=== PATIENT | female | born 1970 | race Caucasian/White ===

== ENCOUNTER 2020-04-26 08:39 | Emergency (ER) | payer OTHER ==
[~2020-04-26] VITALS: Ht 165.1 cm; Wt 72.1 kg
[2020-04-26 08:45] VITALS: BP_SYST 120
[2020-04-26] MEDS ORDERED: NACL 0.9% 1,000 ML IV ONE (09:04)
[2020-04-26] MEDS ORDERED: MAG HYDROX/AL HYDROX/SIMETH 30 ML, DICYCLOMINE HCL 20 MG, LIDOCAINE VISCOUS 2% 15ML (PO... PO ONE ×3 (09:15)
[2020-04-26] MEDS ORDERED: FAMOTIDINE PF 20 MG/2 ML VIAL IVP ONE (09:15)
[2020-04-26 09:24] LABS: BASOPHILS # (AUTO) 0.1 K/uL (0.0-0.2); BASOPHILS % (AUTO) 0.5 % (0.0-2.0); EOSINOPHILS # (AUTO) 0.3 K/uL (0.0-0.4); EOSINOPHILS % (AUTO) 2.5 % (0.0-4.0); HEMATOCRIT 37.2 % (36-48); HEMOGLOBIN 12.7 g/dL (12.0-16.0); LYMPHOCYTES % (AUTO) 44.6 % (20.5-51.5); MEAN CORPUSCULAR HEMOGLOBIN 36 pg (27-31); MEAN CORPUSCULAR HGB CONC 34 % (32-36); MEAN CORPUSCULAR VOLUME 105 fL (79.0-98.0); MONOCYTES # (AUTO) 1.2 K/uL (0.0-1.0); MONOCYTES % (AUTO) 11.1 % (1.7-9.3); NEUTROPHILS # (AUTO) 4.6 K/uL (1.8-7.7); NEUTROPHILS % (AUTO) 41.3 % (40.0-70.0); PLATELET COUNT (AUTO) 239 K/uL (130-430); RED BLOOD CELL COUNT(AUTO) 3.55 MIL/uL (4.2-6.2); RED CELL DISTRIBUTION WIDTH 13.3 % (9.0-15.0); WHITE BLOOD COUNT (AUTO) 11.2 K/uL (4.8-10.8)
[2020-04-26 09:28] LABS: ANION GAP 13 (5-15); CALCIUM 9.1 mg/dL (8.4-11.0); CHLORIDE 102 mmol/L (98-107); CREATININE 0.67 mg/dL (0.55-1.30); GLUCOSE 106 mg/dL (70-99); POTASSIUM 3.3 mmol/L (3.5-5.1); SODIUM SERUM 141 mmol/L (136-145); UREA NITROGEN, BLOOD 9 mg/dL (8-21)
[2020-04-26 09:30] LABS: GFR AFRICAN AMERICAN 121 mL/min (>90)
[2020-04-26] MEDS ORDERED: ONDANSETRON HCL 4 MG/2 ML VIAL IVP ONE (09:30)
[2020-04-26] MEDS ORDERED: fentaNYL CITRATE/PF 100 MCG/2 ML AMP IVP ONE (09:30)
[2020-04-26] MEDS ORDERED: DIAZEPAM 5 MG TABLET (VALIUM) PO ONE (09:30)
[2020-04-26 09:33] LABS: PROTHROMBIN TIME 9.7 SECS (9.5-12.5)
[2020-04-26 09:35] LABS: ALANINE AMINOTRANSFERASE 22 U/L (12-78); ALBUMIN 3.6 g/dL (3.4-4.8); ASPARTATE AMINOTRANSFERASE 34 U/L (10-37); TOTAL BILIRUBIN 0.1 mg/dL (0.0-1.0)
[2020-04-26] MEDS ORDERED: MORPHINE 4 MG/ML INJ. SYRINGE IVP ONE ×2 (09:45→10:15)
[2020-04-26 09:51] LABS: LIPASE > 45000 U/L (73-393)
[2020-04-26] MEDS ORDERED: NACL 0.9% 2,000 ML IV ONE (10:15)
[2020-04-26] MEDS ORDERED: KETAMINE 30 MG/3 ML SYRINGE 30 MG in NS 100 ML IV ONE (10:30)
[2020-04-26] MEDS ORDERED: IOHEXOL 100 ML IV ONE (10:31)
[2020-04-26] MEDS ORDERED: KETAMINE 30 MG/3 ML SYRINGE ONE (10:43)
[2020-04-26] MEDS ORDERED: LORazepam 2 MG/ML VIAL IVP ONE (11:00)
[2020-04-26 14:31] VITALS: BP_SYST 132
== END 2020-04-26 14:31 | disposition short-term general hospital (02) ==
LOC: SED 08:39
DX: K85.90 Acute pancreatitis without necrosis or infection, unspecified (principal); F10.229 Alcohol dependence with intoxication, unspecified; F17.210 Nicotine dependence, cigarettes, uncomplicated; Y90.9 Presence of alcohol in blood, level not specified
CPT/HCPCS: 36415; 36600; 71045; 74177; 76705; 80053; 82803; 83690; 84702; 85025; 85610; 85730; 93005; 96361; 96374; 96375; 99291; 99292; J2001; J2060; J2270; J2405; J3010; J3490; J7030; Q9967; 96360; 99285

== ENCOUNTER 2021-07-24 07:15 | Emergency (ER) | payer OTHER, SELFPAY ==
[~2021-07-24] VITALS: Ht 165.1 cm; Wt 68.0 kg
--- NOTE | 2021-07-24 07:21 | NUR ---
PT COMES IN VIA W/C, BROUGHT IN WITH FROM HOME. 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 ADMITS TO DRINKING 3 MARGARITAS AND TWO BEERS LAST NIGHT. STATES SAME PROBLEM LAST TIME AND WAS DIAGNOSED WITH PANCREATITIS. PT DENIES ANY CHEST PAIN OR SOB. SKI W/D/I.
--- NOTE | 2021-07-24 07:26 | NUR ---
DR RUIZ AT BEDSIDE FOR EXAM.
[2021-07-24 07:29] VITALS: BP_SYST 159
[2021-07-24] MEDS ORDERED: KETOROLAC TROMETHAMINE 60 MG/2 ML VIAL IM ONE (07:30)
[2021-07-24] MEDS ORDERED: ONDANSETRON 4 MG ODT TAB PO ONE (07:30)
--- NOTE | 2021-07-24 07:51 | NUR ---
PT BACK FROM CT SCAN, CONT TO C/O ABD PAIN.
--- NOTE | 2021-07-24 08:14 | NUR ---
CALL CENTER ASSOCIATE AT BEDSIDE FOR BLOOD COLLECTION
--- NOTE | 2021-07-24 08:17 | NUR ---
DR RUIZ INFORMED THAT PT IS REQUESTING MORE PAIN MEDS. CONINUES TO FEEL NAUSEA. DR RUIZ INFORMED AND NOW AT BEDSIDE FOR RE-EXAM.
[2021-07-24] MEDS ORDERED: MORPHINE 4 MG INJ. 4 MG/ML VIAL IM ONE (08:30)
[2021-07-24 08:31] LABS: BASOPHILS # (AUTO) 0.1 K/uL (0.0-0.2); BASOPHILS % (AUTO) 0.7 % (0.0-2.0); EOSINOPHILS # (AUTO) 0.2 K/uL (0.0-0.4); EOSINOPHILS % (AUTO) 1.7 % (0.0-4.0); HEMATOCRIT 39.4 % (36-48); HEMOGLOBIN 13.4 g/dL (12.0-16.0); LYMPHOCYTES # (AUTO) 2.2 K/uL (1.0-5.5); LYMPHOCYTES % (AUTO) 18.1 % (20.5-51.5); MEAN CORPUSCULAR HEMOGLOBIN 36 pg (27-31); MEAN CORPUSCULAR HGB CONC 34 % (32-36); MEAN CORPUSCULAR VOLUME 106 fL (79.0-98.0); NEUTROPHILS # (AUTO) 8.6 K/uL (1.8-7.7); NEUTROPHILS % (AUTO) 71.5 % (40.0-70.0); PLATELET COUNT (AUTO) 233 K/uL (130-430); RED BLOOD CELL COUNT(AUTO) 3.72 MIL/uL (4.2-6.2)
--- NOTE | 2021-07-24 08:32 | NUR ---
PT MEDICATED WITH MORPHHINE 4MG IM TO LEFT DELTOID ORDERED, WILL CONT TO MONITOR FOR EFFCTS.
[2021-07-24 08:43] LABS: PROTHROMBIN TIME 10.4 SECS (9.5-12.5)
[2021-07-24 08:49] LABS: ANION GAP 13 (5-15); CALCIUM 8.3 mg/dL (8.4-11.0); CHLORIDE 104 mmol/L (98-107); CREATININE 0.64 mg/dL (0.55-1.30); GLUCOSE 136 mg/dL (70-99); POTASSIUM 3.5 mmol/L (3.5-5.1); SODIUM SERUM 139 mmol/L (136-145); UREA NITROGEN, BLOOD 9 mg/dL (8-21)
[2021-07-24 08:55] LABS: ALANINE AMINOTRANSFERASE 36 U/L (12-78); ALBUMIN 3.8 g/dL (3.4-4.8); ASPARTATE AMINOTRANSFERASE 54 U/L (10-37); LIPASE 10701 U/L (73-393); TOTAL BILIRUBIN 0.1 mg/dL (0.0-1.0)
--- NOTE | 2021-07-24 08:57 | NUR ---
PT CONITNUES TO PAULETTE IN PAIN, STATES " IM DRY HEAVING NOW". DR RUIZ INFORMED. PT STATES MORPHINE HAS NOT HELPED HER AND THAT MORPHINE IV IS WHAT WORKS FOR HER. DR RUIZ INFORMED.
[2021-07-24 09:02] LABS: C-REACTIVE PROTEIN QUANT < 0.2 mg/dL (0-0.5); GFR AFRICAN AMERICAN 127 mL/min (>90)
[2021-07-24 09:05] LABS: AMYLASE 2083 U/L (0-100)
[2021-07-24] MEDS ORDERED: MORPHINE 4 MG INJ. 4 MG/ML VIAL IVP ONE ×2 (09:15→11:30)
[2021-07-24] MEDS ORDERED: ONDANSETRON HCL 4 MG/2 ML VIAL IVP ONE (09:15)
[2021-07-24] MEDS ORDERED: NACL 0.9% 2,000 ML IV ONE (09:15)
--- NOTE | 2021-07-24 09:32 | NUR ---
Dr. Jimenez, [place] [facility] Doc, called back to speak to Dr. Jimenez regarding pt status.
--- NOTE | 2021-07-24 10:28 | NUR ---
PT CONTINUES TO MOAN WITH PAIN, BOYFRIEND AT BEDSIDE, CONVERSING. DR RUIZ INFORMED OF PT'S CONTINUED PAIN. NO ORDERS RECEIVED.
[2021-07-24] MEDS ORDERED: KETAMINE 30 MG/3 ML SYRINGE IVP ONE (10:30)
--- NOTE | 2021-07-24 11:33 | NUR ---
MEDICATED ORDERED, BOYFIEND AT BEDSIDE. WAITING FOR [facility] TRANSFER.
--- NOTE | 2021-07-24 12:05 | NUR ---
TRANSFER INFO [facility] Dr. Valladares Okeene [phone] [facility] ETA 1230 spoke to [place]
--- NOTE | 2021-07-24 12:40 | NUR ---
REPORT GIVEN TO AZUL LINN AT [facility], UPDATED ON PT'S STATUS, LABS AND VITALS. PT STABLE FOR TRANSFER.
--- NOTE | 2021-07-24 13:00 | NUR ---
REPORT GIVEN TO [facility]. ALL TRANSFER PAPERWORK GIVEN. PT STABLE FOR TRANSFER.
[2021-07-24 13:04] VITALS: BP_SYST 136
--- NOTE | 2021-07-24 13:05 | NUR ---
Patient to be transferred to [facility]. Is being transferred due to higher level of care. Receiving facility has accepting physician and available space. ER physician has signed transfer form. Patient or responsible democrat has agreed to transfer and signed form. Patient belongings inventoried and will be sent with patient. Copy of nursing notes, lab reports, EKG, Physicians Orders and X-rays to be sent with patient. Report called to at receiving facility. Receiving physician is . ambulance service has been called for transfer.
== END 2021-07-24 13:05 | disposition short-term general hospital (02) ==
LOC: SED 07:15
DX: K85.90 Acute pancreatitis without necrosis or infection, unspecified (principal); Z20.822 Contact with and (suspected) exposure to COVID-19
CPT/HCPCS: 36415; 74176; 76376; 80053; 82150; 83605; 83690; 84484; 84703; 85025; 85610; 85730; 86140; 87426; 96361; 96372; 96374; 96375; 96376; 99285; J1885; J2270; J2405; J7030; Q0162

== ENCOUNTER 2021-11-05 12:32 | Emergency (ER) | payer OTHER, SELFPAY ==
[~2021-11-05] VITALS: Ht 167.6 cm; Wt 68.0 kg
[2021-11-05 12:37] VITALS: BP_SYST 89
[2021-11-05] MEDS ORDERED: ONDANSETRON HCL 4 MG/2 ML VIAL IVP ONE ×2 (13:00→17:00)
[2021-11-05] MEDS ORDERED: MORPHINE 4 MG INJ. 4 MG/ML VIAL IVP ONE ×3 (13:00→17:00)
[2021-11-05] MEDS ORDERED: NACL 0.9% 1,000 ML IV ONE ×3 (13:00→17:00)
[2021-11-05 13:19] LABS: BASOPHILS # (AUTO) 0.1 K/uL (0.0-0.2); BASOPHILS % (AUTO) 0.6 % (0.0-2.0); EOSINOPHILS # (AUTO) 0.1 K/uL (0.0-0.4); EOSINOPHILS % (AUTO) 0.9 % (0.0-4.0); HEMATOCRIT 39.7 % (36-48); HEMOGLOBIN 13.3 g/dL (12.0-16.0); LYMPHOCYTES # (AUTO) 3.6 K/uL (1.0-5.5); LYMPHOCYTES % (AUTO) 24.6 % (20.5-51.5); MEAN CORPUSCULAR HEMOGLOBIN 32 pg (27-31); MEAN CORPUSCULAR HGB CONC 33 % (32-36); MEAN CORPUSCULAR VOLUME 95 fL (79.0-98.0); MONOCYTES # (AUTO) 0.8 K/uL (0.0-1.0); MONOCYTES % (AUTO) 5.4 % (1.7-9.3); NEUTROPHILS # (AUTO) 10.1 K/uL (1.8-7.7); NEUTROPHILS % (AUTO) 68.5 % (40.0-70.0); PLATELET COUNT (AUTO) 275 K/uL (130-430); RED BLOOD CELL COUNT(AUTO) 4.18 MIL/uL (4.2-6.2); RED CELL DISTRIBUTION WIDTH 13.6 % (9.0-15.0); WHITE BLOOD COUNT (AUTO) 14.8 K/uL (4.8-10.8)
[2021-11-05] MEDS ORDERED: LORazepam 2 MG/ML VIAL IVP ONE (13:45)
[2021-11-05 13:56] LABS: CALCIUM 8.7 mg/dL (8.4-11.0); CREATININE 0.59 mg/dL (0.55-1.30); POTASSIUM 3.3 mmol/L (3.5-5.1)
[2021-11-05 14:01] LABS: ALBUMIN 3.9 g/dL (3.4-4.8); TOTAL BILIRUBIN 0.3 mg/dL (0.0-1.0)
[2021-11-05 16:16] LABS: INR 1.1 (0.8-1.2); PROTHROMBIN TIME 10.8 SECS (9.5-12.5)
[2021-11-05] MEDS ORDERED: chlordiazePOXIDE HCL 25 MG CAPSULE PO ONE (16:30)
[2021-11-05 16:31] LABS: BILIRUBIN,URINE NEGATIVE (NEGATIVE); BLOOD, URINE NEGATIVE (NEGATIVE); CLARITY/URINE CLEAR (CLEAR); COLOR,URINE YELLOW (YELLOW); GLUCOSE,URINE NEGATIVE (NEGATIVE); KETONES,URINE 3+ (NEGATIVE); LEUKOCYTE ESTERASE ,URINE NEGATIVE (NEGATIVE); NITRITE, URINE NEGATIVE (NEGATIVE); PROTEIN URINE NEGATIVE (NEGATIVE); UROBILINOGEN,URINE 0.2 (0.2-1.0)
[2021-11-05] MEDS ORDERED: metroNIDAZOLE 500 MG TABLET PO ONE (17:00)
[2021-11-05] MEDS ORDERED: PIPERACILLIN/TAZO 3.375 GM in NS 50 ML IV ONE (17:00)
[2021-11-05] MEDS ORDERED: FOLIC ACID 1 MG, THIAMINE HCL 100 MG, MAGNESIUM SULFATE 1 GM, MVI 10 ML in NACL 0.9% 1,... IV ONE (17:00)
[2021-11-05] MEDS ORDERED: KCL 20 mEq in 100 mL (PREMIX) 100 ML IV ONE (17:00)
[2021-11-05] MEDS ORDERED: HYDROmorphone 1 MG/ML INJ. CARTRIDGE IVP ONE (18:30)
[2021-11-05] MEDS ORDERED: PROCHLORPERAZINE EDISYLATE 10 MG/2 ML VIAL IVP ONE (18:45)
[2021-11-05] MEDS ORDERED: DIPHENHYDRAMINE INJ 50 MG/ML VIAL IVP ONE (18:45)
[2021-11-05 18:51] VITALS: BP_SYST 141
== END 2021-11-05 19:07 | disposition short-term general hospital (02) ==
LOC: SED 12:32
DX: R10.13 Epigastric pain (principal); R11.2 Nausea with vomiting, unspecified; Z20.822 Contact with and (suspected) exposure to COVID-19
CPT/HCPCS: 36415; 71045; 74018; 80053; 81003; 83605; 83690; 85025; 85610; 87040; 87426; 93005; 96361; 96365; 96366; 96368; 96375; 96376; 99291; J0780; J1170; J1200; J2060; J2270; J2405; J3480; J7030

== ENCOUNTER 2022-01-03 02:35 | Emergency (ER) | payer OTHER ==
[~2022-01-03] VITALS: Ht 165.1 cm; Wt 63.5 kg
[2022-01-03 02:40] VITALS: BP_SYST 139
[2022-01-03] MEDS ORDERED: NACL 0.9% 1,000 ML IV ONE (05:00)
[2022-01-03] MEDS ORDERED: MAG HYDROX/AL HYDROX/SIMETH 30 ML, LIDOCAINE VISCOUS 2% 15ML (PO) 15 ML, DICYCLOMINE HC... PO ONE ×3 (05:00)
[2022-01-03] MEDS ORDERED: ONDANSETRON HCL 4 MG/2 ML VIAL IVP ONE ×2 (05:00)
[2022-01-03] MEDS ORDERED: KETOROLAC TROMETHAMINE 30 MG VIAL IVP ONE (05:00)
[2022-01-03 05:01] LABS: CALCIUM 8.9 mg/dL (8.4-11.0); CREATININE 0.64 mg/dL (0.55-1.30); POTASSIUM 3.3 mmol/L (3.5-5.1)
[2022-01-03 05:02] LABS: MEAN CORPUSCULAR HGB CONC 33 % (32-36); RED CELL DISTRIBUTION WIDTH 13.8 % (9.0-15.0)
[2022-01-03 05:08] LABS: ALBUMIN 3.1 g/dL (3.4-4.8); BASOPHILS % (AUTO) 0.3 % (0.0-2.0); EOSINOPHILS # (AUTO) 0.2 K/uL (0.0-0.4); EOSINOPHILS % (AUTO) 1.3 % (0.0-4.0); HEMATOCRIT 34.9 % (36-48); HEMOGLOBIN 11.5 g/dL (12.0-16.0); LYMPHOCYTES # (AUTO) 2.7 K/uL (1.0-5.5); LYMPHOCYTES % (AUTO) 19.2 % (20.5-51.5); MEAN CORPUSCULAR HEMOGLOBIN 31 pg (27-31); MEAN CORPUSCULAR VOLUME 93 fL (79.0-98.0); MONOCYTES # (AUTO) 1.2 K/uL (0.0-1.0); MONOCYTES % (AUTO) 8.2 % (1.7-9.3); NEUTROPHILS # (AUTO) 10.1 K/uL (1.8-7.7); PLATELET COUNT (AUTO) 475 K/uL (130-430); RED BLOOD CELL COUNT(AUTO) 3.75 MIL/uL (4.2-6.2); TOTAL BILIRUBIN 0.4 mg/dL (0.0-1.0); WHITE BLOOD COUNT (AUTO) 14.2 K/uL (4.8-10.8)
[2022-01-03 05:08] LABS: BILIRUBIN,URINE 2+ (NEGATIVE); BLOOD, URINE NEGATIVE (NEGATIVE); CLARITY/URINE CLEAR (CLEAR); COLOR,URINE YELLOW (YELLOW); GLUCOSE,URINE NEGATIVE (NEGATIVE); KETONES,URINE 3+ (NEGATIVE); LEUKOCYTE ESTERASE ,URINE NEGATIVE (NEGATIVE); NITRITE, URINE NEGATIVE (NEGATIVE); PROTEIN URINE 1+ (NEGATIVE)
[2022-01-03] MEDS ORDERED: MORPHINE 4 MG INJ. 4 MG/ML VIAL IM ONE (05:15)
[2022-01-03] MEDS ORDERED: MORPHINE 4 MG INJ. 4 MG/ML VIAL IVP ONE (05:30)
[2022-01-03] MEDS ORDERED: PROCHLORPERAZINE EDISYLATE 10 MG/2 ML VIAL ONE (05:35)
[2022-01-03] MEDS ORDERED: PROMETHAZINE INJ.Non-Formulary 25 MG/ML AMP IVP ONE (05:45)
[2022-01-03] MEDS ORDERED: PROCHLORPERAZINE EDISYLATE 10 MG/2 ML VIAL IVP ONE (05:45)
== END 2022-01-03 09:17 | disposition left against medical advice (07) ==
LOC: SED 02:35
DX: K85.20 Alcohol induced acute pancreatitis without necrosis or infection (principal); R74.8 Abnormal levels of other serum enzymes; F10.20 Alcohol dependence, uncomplicated; Y90.0 Blood alcohol level of less than 20 mg/100 ml
CPT/HCPCS: 36415; 76705; 80053; 81003; 83690; 85025; 96361; 96374; 96375; 99284; G0482; J0780; J2270; J7030; J2550

== ENCOUNTER 2022-01-28 15:07 | Emergency (ER) | payer OTHER ==
[~2022-01-28] VITALS: Ht 165.1 cm; Wt 65.8 kg
--- NOTE | 2022-01-28 15:24 | NUR ---
ER DR DOVE EXAMINING PT IN TRIAGE
[2022-01-28 15:25] VITALS: BP_SYST 148
--- NOTE | 2022-01-28 15:25 | NUR ---
PT TRIAGED AND PLACED IN ED WAITING ROOM FOR AVAIABLE BED, MD AWARE OF MSE NEEDS
[2022-01-28 16:12] LABS: BASOPHILS # (AUTO) 0.1 K/uL (0.0-0.2); BASOPHILS % (AUTO) 0.8 % (0.0-2.0); EOSINOPHILS # (AUTO) 0.5 K/uL (0.0-0.4); EOSINOPHILS % (AUTO) 5.1 % (0.0-4.0); HEMATOCRIT 31.7 % (36-48); HEMOGLOBIN 10.8 g/dL (12.0-16.0); LYMPHOCYTES # (AUTO) 2.3 K/uL (1.0-5.5); LYMPHOCYTES % (AUTO) 23.6 % (20.5-51.5); MEAN CORPUSCULAR HEMOGLOBIN 31 pg (27-31); MEAN CORPUSCULAR HGB CONC 34 % (32-36); MEAN CORPUSCULAR VOLUME 91 fL (79.0-98.0); MONOCYTES # (AUTO) 0.8 K/uL (0.0-1.0); MONOCYTES % (AUTO) 8.4 % (1.7-9.3); NEUTROPHILS # (AUTO) 6.2 K/uL (1.8-7.7); NEUTROPHILS % (AUTO) 62.1 % (40.0-70.0); PLATELET COUNT (AUTO) 594 K/uL (130-430); RED BLOOD CELL COUNT(AUTO) 3.47 MIL/uL (4.2-6.2); RED CELL DISTRIBUTION WIDTH 15.9 % (9.0-15.0)
[2022-01-28] MEDS ORDERED: NACL 0.9% 1,000 ML IV ONE (16:15)
[2022-01-28] MEDS ORDERED: fentaNYL CITRATE/PF 100 MCG/2 ML AMP IVP ONE (16:15)
[2022-01-28] MEDS ORDERED: ONDANSETRON HCL 4 MG/2 ML VIAL IVP ONE (16:15)
[2022-01-28 16:19] LABS: ANION GAP 10 (5-15); CALCIUM 9.1 mg/dL (8.4-11.0); CHLORIDE 102 mmol/L (98-107); CREATININE 0.72 mg/dL (0.55-1.30); GLUCOSE 108 mg/dL (70-99); POTASSIUM 4.1 mmol/L (3.5-5.1); SODIUM SERUM 136 mmol/L (136-145); UREA NITROGEN, BLOOD 4 mg/dL (8-21)
[2022-01-28 16:20] LABS: GFR AFRICAN AMERICAN 111 mL/min (>90)
--- NOTE | 2022-01-28 16:20 | NUR ---
# 22 gauge angiocath placed to LEFT HAND. Use of asceptic technique. Opsite placed over site. Blood return noted. Blood for lab drawn from site. Flushed with 10 cc of normal saline. No evidence of infiltration noted. Patient tolerated well.
[2022-01-28 16:25] LABS: ALANINE AMINOTRANSFERASE 10 U/L (12-78); ALBUMIN 2.7 g/dL (3.4-4.8); ASPARTATE AMINOTRANSFERASE 16 U/L (10-37); LIPASE 556 U/L (73-393); TOTAL BILIRUBIN 0.1 mg/dL (0.0-1.0)
[2022-01-28 16:27] LABS: ALCOHOL, BLOOD < 3 mg/dL (<10)
--- NOTE | 2022-01-28 16:30 | NUR ---
Medicated per MD orders. IVF infusing with no s/s of infiltration at this time. Will cont to monitor
--- NOTE | 2022-01-28 16:30 | NUR ---
Pt alert and oriented x 3. Here from home, having been recently admitted then discharged from [facility] for abd pain. Pt has been diagnosed with alcoholic pancreatitis but states she no longer drinks. Pt taking Percocet for pain but states it was ineffective. Awaiting further dispo.
[2022-01-28] MEDS ORDERED: PANTOPRAZOLE SODIUM 40 MG/VIAL (PROTONIX) IVP ONE (17:30)
[2022-01-28] MEDS ORDERED: ONDA-8 TL (18:23)
[2022-01-28 18:26] VITALS: BP_SYST 135
[2022-01-28] MEDS ORDERED: MORPHINE 4 MG INJ. 4 MG/ML VIAL IM ONE (18:30)
--- NOTE | 2022-01-28 19:00 | NUR ---
Unable to give pt Morphine IM due to her driving herself home via private auto. Pt asked to take one of her Percocet's before going home. Advised not to take a narcotic and drive. Understanding verbalized.
--- NOTE | 2022-01-28 19:11 | NUR ---
Patient given written and verbal discharge instructions and verbalizes understanding. ER MD discussed with patient the results and treatment provided. Patient in stable condition. ID arm band removed. IV catheter removed intact and dressing applied, no active bleeding. Rx of Zofran given. Patient educated on pain management and to follow up with PMD. Pain improved. Opportunity for questions provided and answered. Medication side effect fact sheet provided.
== END 2022-01-28 19:09 | disposition home or self-care (01) ==
LOC: SED 15:07
DX: K86.1 Other chronic pancreatitis (principal); R10.13 Epigastric pain; Z79.899 Other long term (current) drug therapy
CPT/HCPCS: 36415; 80053; 83690; 85025; 96361; 96374; 96375; 99284; C9113; G0482; J2270; J2405; J3010; J7030

== ENCOUNTER 2022-02-06 02:07 | Emergency (ER) | payer OTHER ==
[~2022-02-06] VITALS: Ht 165.1 cm; Wt 63.5 kg
[~2022-02-06 02:07] MED LIST: ONDA-8 TL
[2022-02-06] MEDS ORDERED: NACL 0.9% 1,000 ML IV ONE (03:15)
[2022-02-06] MEDS ORDERED: ONDANSETRON HCL 4 MG/2 ML VIAL IVP ONE (03:15)
[2022-02-06] MEDS ORDERED: MORPHINE 4 MG INJ. 4 MG/ML VIAL IVP ONE ×2 (03:15→04:15)
[2022-02-06 03:28] VITALS: BP_SYST 150
--- NOTE | 2022-02-06 03:32 | NUR ---
Patient placed on monitor with gown on. Waiting to be seen, IVF running at this time.
[2022-02-06 03:45] LABS: BASOPHILS # (AUTO) 0.2 K/uL (0.0-0.2); BASOPHILS % (AUTO) 1.2 % (0.0-2.0); EOSINOPHILS # (AUTO) 0.3 K/uL (0.0-0.4); EOSINOPHILS % (AUTO) 2.1 % (0.0-4.0); HEMATOCRIT 35.2 % (36-48); HEMOGLOBIN 11.7 g/dL (12.0-16.0); LYMPHOCYTES # (AUTO) 3.1 K/uL (1.0-5.5); LYMPHOCYTES % (AUTO) 22.7 % (20.5-51.5); MEAN CORPUSCULAR HEMOGLOBIN 30 pg (27-31); MEAN CORPUSCULAR HGB CONC 33 % (32-36); MEAN CORPUSCULAR VOLUME 90 fL (79.0-98.0); MONOCYTES # (AUTO) 0.6 K/uL (0.0-1.0); MONOCYTES % (AUTO) 4.6 % (1.7-9.3); NEUTROPHILS # (AUTO) 9.6 K/uL (1.8-7.7); NEUTROPHILS % (AUTO) 69.4 % (40.0-70.0); PLATELET COUNT (AUTO) 548 K/uL (130-430); RED BLOOD CELL COUNT(AUTO) 3.89 MIL/uL (4.2-6.2); RED CELL DISTRIBUTION WIDTH 16.8 % (9.0-15.0); WHITE BLOOD COUNT (AUTO) 13.8 K/uL (4.8-10.8)
[2022-02-06 03:54] LABS: ANION GAP 14 (5-15); CALCIUM 9.4 mg/dL (8.4-11.0); CHLORIDE 102 mmol/L (98-107); CREATININE 0.77 mg/dL (0.55-1.30); GLUCOSE 121 mg/dL (70-99); POTASSIUM 3.6 mmol/L (3.5-5.1); SODIUM SERUM 138 mmol/L (136-145); UREA NITROGEN, BLOOD 8 mg/dL (8-21)
[2022-02-06 04:05] LABS: ALANINE AMINOTRANSFERASE 13 U/L (12-78); ALBUMIN 3.5 g/dL (3.4-4.8); ASPARTATE AMINOTRANSFERASE 19 U/L (10-37); TOTAL BILIRUBIN 0.2 mg/dL (0.0-1.0)
[2022-02-06 04:08] LABS: GFR AFRICAN AMERICAN 102 mL/min (>90)
[2022-02-06 04:11] LABS: HCG,QUANTITATIVE 6 mIU/ML (0-6); LIPASE 6391 U/L (73-393)
[2022-02-06 04:12] LABS: ALCOHOL, BLOOD < 3 mg/dL (<10)
[2022-02-06] MEDS ORDERED: KETAMINE 30 MG/3 ML SYRINGE IVP ONE ×2 (05:00→05:45)
[2022-02-06] MEDS ORDERED: KETAMINE 30 MG/3 ML SYRINGE ONE (05:29)
--- NOTE | 2022-02-06 05:37 | NUR ---
Second dose of ketamine administered from initial syringe prior to discarding the waste of 10mg leftover. Charge aware.
--- NOTE | 2022-02-06 06:23 | NUR ---
TRANSFER INFO Shawn Bone [facility] Bernardo Voss [phone] ETA 0700 Addendum: 02/06/22 at 0644 by BRENDAN Bernardo Blue is the accepting doctor.
[2022-02-06 06:43] LABS: BILIRUBIN,URINE NEGATIVE (NEGATIVE); BLOOD, URINE NEGATIVE (NEGATIVE); CLARITY/URINE CLEAR (CLEAR); COLOR,URINE YELLOW (YELLOW); GLUCOSE,URINE NEGATIVE (NEGATIVE); KETONES,URINE NEGATIVE (NEGATIVE); LEUKOCYTE ESTERASE ,URINE TRACE (NEGATIVE); NITRITE, URINE NEGATIVE (NEGATIVE); PH,URINE 7.5 (5.0-8.0); PROTEIN URINE NEGATIVE (NEGATIVE); UROBILINOGEN,URINE 0.2 (0.2-1.0)
[2022-02-06 06:59] LABS: BACTERIA,URINE FEW /HPF (None Seen); RBC,URINE 0-3 /HPF (0-3)
[2022-02-06 07:00] LABS: MUCUS,URINE 1+ /LPF (None Seen)
--- NOTE | 2022-02-06 07:12 | NUR ---
Patient to be transferred to [facility]. Is being transferred due to higher level of care. Receiving facility has accepting physician and available space. ER physician has signed transfer form. Patient or responsible republican has agreed to transfer and signed form. Patient belongings inventoried and will be sent with patient. Copy of nursing notes, lab reports, EKG, Physicians Orders and X-rays to be sent with patient. Report called to at receiving facility. Receiving physician is . ambulance service has been called for transfer. ETA is .
== END 2022-02-06 07:12 | disposition short-term general hospital (02) ==
LOC: SED 02:07
DX: K85.90 Acute pancreatitis without necrosis or infection, unspecified (principal); Z79.899 Other long term (current) drug therapy
CPT/HCPCS: 36415; 76700; 80053; 81000; 83690; 84702; 85025; 87086; 96361; 96374; 96375; 96376; 99285; G0482; J2270; J2405; J7030

== ENCOUNTER 2022-04-25 10:07 | Emergency (ER) | payer OTHER ==
[~2022-04-25] VITALS: Ht 162.6 cm; Wt 61.2 kg
[2022-04-25 10:30] VITALS: BP_SYST 142
[2022-04-25] MEDS: ONDANSETRON HCL 4 MG/2 ML VIAL IVP ONE ×2 (11:55)
[2022-04-25] MEDS: KETOROLAC TROMETHAMINE 30 MG VIAL IVP ONE (11:56)
[2022-04-25] MEDS: MORPHINE 4 MG INJ. 4 MG/ML VIAL IVP ONE (11:58)
[2022-04-25 12:00] LABS: BASOPHILS # (AUTO) 0.1 K/uL (0.0-0.2); BASOPHILS % (AUTO) 0.7 % (0.0-2.0); EOSINOPHILS # (AUTO) 0.1 K/uL (0.0-0.4); EOSINOPHILS % (AUTO) 1.1 % (0.0-4.0); HEMATOCRIT 35.6 % (36-48); HEMOGLOBIN 12.1 g/dL (12.0-16.0); LYMPHOCYTES # (AUTO) 2.9 K/uL (1.0-5.5); LYMPHOCYTES % (AUTO) 23.2 % (20.5-51.5); MEAN CORPUSCULAR HEMOGLOBIN 30 pg (27-31); MEAN CORPUSCULAR HGB CONC 34 % (32-36); MEAN CORPUSCULAR VOLUME 89 fL (79.0-98.0); MONOCYTES # (AUTO) 0.7 K/uL (0.0-1.0); MONOCYTES % (AUTO) 5.4 % (1.7-9.3); NEUTROPHILS # (AUTO) 8.9 K/uL (1.8-7.7); NEUTROPHILS % (AUTO) 69.6 % (40.0-70.0); PLATELET COUNT (AUTO) 382 K/uL (130-430); RED BLOOD CELL COUNT(AUTO) 4.01 MIL/uL (4.2-6.2); RED CELL DISTRIBUTION WIDTH 15.5 % (9.0-15.0); WHITE BLOOD COUNT (AUTO) 12.7 K/uL (4.8-10.8)
[2022-04-25] MEDS: NACL 0.9% 1,000 ML IV ONE ×2 (12:01→15:01)
[2022-04-25 12:15] LABS: CALCIUM 10.3 mg/dL (8.4-11.0); CREATININE 0.62 mg/dL (0.55-1.30); POTASSIUM 4.3 mmol/L (3.5-5.1)
[2022-04-25 12:19] LABS: TOTAL BILIRUBIN 0.2 mg/dL (0.0-1.0)
[2022-04-25 12:28] LABS: BILIRUBIN,URINE NEGATIVE (NEGATIVE); BLOOD, URINE NEGATIVE (NEGATIVE); CLARITY/URINE CLEAR (CLEAR); COLOR,URINE YELLOW (YELLOW); GLUCOSE,URINE NEGATIVE (NEGATIVE); KETONES,URINE 2+ (NEGATIVE); LEUKOCYTE ESTERASE ,URINE NEGATIVE (NEGATIVE); NITRITE, URINE NEGATIVE (NEGATIVE); PH,URINE 8.5 (5.0-8.0); PROTEIN URINE NEGATIVE (NEGATIVE); UROBILINOGEN,URINE 0.2 (0.2-1.0)
[2022-04-25] MEDS ORDERED: HYDROcodone/ACETAMIN 10-325 MG TAB PO ONE (15:15)
[2022-04-25] MEDS ORDERED: IBUPROFEN 800 MG TABLET PO ONE (15:15)
[2022-04-25] MEDS ORDERED: IBUP-1969 PO (15:23)
[2022-04-25] MEDS ORDERED: HYDR-3917 PO (15:23)
[2022-04-25 15:42] VITALS: BP_SYST 142
== END 2022-04-25 15:42 | disposition home or self-care (01) ==
LOC: SED 10:07
DX: R10.31 Right lower quadrant pain (principal); K85.90 Acute pancreatitis without necrosis or infection, unspecified; R11.0 Nausea; F12.90 Cannabis use, unspecified, uncomplicated; F17.210 Nicotine dependence, cigarettes, uncomplicated; Z79.899 Other long term (current) drug therapy
CPT/HCPCS: 99284; 74176; 96374; 96361; 96375; 80053; 83690; 85025; 36415; 76376; 81003; J1885; J2405; J2270; J7030

== ENCOUNTER 2022-04-27 09:45 | Emergency (ER) | payer OTHER ==
[~2022-04-27] VITALS: Ht 165.1 cm; Wt 55.8 kg
[~2022-04-27 09:45] MED LIST changes: +HYDR-3917 PO; +IBUP-1969 PO
[2022-04-27 09:48] VITALS: BP_SYST 136
--- NOTE | 2022-04-27 09:50 | NUR ---
Placed in room 5 . Placed on hair worker, blood pressure machine and pulse oximeter. To gown for exam. Side rails up. Report given to TEMITOPE COHN.
--- NOTE | 2022-04-27 09:56 | NUR ---
PT CAME IN FROM HOME C/O CONTINUING ABD PAIN NEAR UMBILICAS RADIAITING UP AND TO THE RIGHT WAS SEEN HERE MONDAY BY DR. RUIZ, WENT HOME WITH ROCHELLE- NOT WORKING HX PANCRETITIS, STATES HER LAST DRINK WAS IN NOVEMBER. PT IS AMBULATORY, AAOX4, TACHYCARDIC ON ARRIVAL 113.
--- NOTE | 2022-04-27 10:45 | NUR ---
# 20 gauge angiocath placed to LAC. Use of asceptic technique. Opsite placed over site. Blood return noted. Blood for lab drawn from site. Flushed with 10 cc of normal saline. No evidence of infiltration noted. Patient tolerated well. Addendum: 04/27/22 at 1222 by [email or web address] # 20 gauge angiocath placed to RAC. Use of asceptic technique. Opsite placed over site. Blood return noted. Blood for lab drawn from site. Flushed with 10 cc of normal saline. No evidence of infiltration noted. Patient tolerated well.
[2022-04-27] MEDS ORDERED: MORPHINE SULFATE 10 MG/ML VIAL IVP ONE (11:15)
[2022-04-27] MEDS ORDERED: NACL 0.9% 1,000 ML IV ONE (11:15)
[2022-04-27 11:26] LABS: CALCIUM 9.7 mg/dL (8.4-11.0); CREATININE 0.59 mg/dL (0.55-1.30); POTASSIUM 3.8 mmol/L (3.5-5.1)
[2022-04-27 11:29] LABS: BILIRUBIN,URINE 2+ (NEGATIVE); BLOOD, URINE NEGATIVE (NEGATIVE); CLARITY/URINE CLEAR (CLEAR); COLOR,URINE YELLOW (YELLOW); GLUCOSE,URINE NEGATIVE (NEGATIVE); KETONES,URINE 3+ (NEGATIVE); LEUKOCYTE ESTERASE ,URINE NEGATIVE (NEGATIVE); NITRITE, URINE NEGATIVE (NEGATIVE); PH,URINE 5.5 (5.0-8.0); PROTEIN URINE TRACE (NEGATIVE); UROBILINOGEN,URINE 0.2 (0.2-1.0)
[2022-04-27 11:35] LABS: BASOPHILS # (AUTO) 0.1 K/uL (0.0-0.2); BASOPHILS % (AUTO) 0.6 % (0.0-2.0); EOSINOPHILS # (AUTO) 0.4 K/uL (0.0-0.4); EOSINOPHILS % (AUTO) 3.6 % (0.0-4.0); HEMATOCRIT 36.6 % (36-48); HEMOGLOBIN 12.3 g/dL (12.0-16.0); LYMPHOCYTES % (AUTO) 16.2 % (20.5-51.5); MEAN CORPUSCULAR HEMOGLOBIN 30 pg (27-31); MEAN CORPUSCULAR HGB CONC 34 % (32-36); MEAN CORPUSCULAR VOLUME 90 fL (79.0-98.0); MONOCYTES # (AUTO) 0.6 K/uL (0.0-1.0); MONOCYTES % (AUTO) 4.8 % (1.7-9.3); NEUTROPHILS # (AUTO) 9.1 K/uL (1.8-7.7); NEUTROPHILS % (AUTO) 74.8 % (40.0-70.0); PLATELET COUNT (AUTO) 385 K/uL (130-430); RED BLOOD CELL COUNT(AUTO) 4.07 MIL/uL (4.2-6.2); RED CELL DISTRIBUTION WIDTH 15.6 % (9.0-15.0); WHITE BLOOD COUNT (AUTO) 12.2 K/uL (4.8-10.8)
[2022-04-27 11:39] LABS: ALBUMIN 3.8 g/dL (3.4-4.8); TOTAL BILIRUBIN 0.2 mg/dL (0.0-1.0)
[2022-04-27 11:51] LABS: BACTERIA,URINE RARE /HPF (None Seen); RBC,URINE 0-3 /HPF (0-3); WBC,URINE 0-3 /HPF (0-3)
--- NOTE | 2022-04-27 12:21 | NUR ---
Patient does not wish to proceed with medical care recommended by DR. NEGRETE. Patient given information related to possible complications, up to and including , which could occur as a result of leaving hospital at this time. Patient verbalizes understanding of risks involved leaving against medical advice. Patient has signed AMA form. MOTHER IS COMING TO GED PREPARATION TEACHER
--- NOTE | 2022-04-27 13:48 | NUR ---
DR CADEN IRVIN INFORMED. PT LEFTT WITH MOTHERS BOYFRIEND WHO CAME TO PICK HER UP.
[2022-04-27 13:50] VITALS: BP_SYST 136
== END 2022-04-27 13:48 | disposition left against medical advice (07) ==
LOC: SED 09:45
DX: R10.33 Periumbilical pain (principal); Z79.899 Other long term (current) drug therapy
CPT/HCPCS: 99285; 96374; 96361; 80053; 81000; 84703; 83690; 85025; 36415; 93005; 74018; J2270; J7030

== ENCOUNTER 2022-04-29 23:06 | Emergency (ER) | payer OTHER ==
[~2022-04-29] VITALS: Ht 165.1 cm; Wt 55.8 kg
[2022-04-29 23:09] VITALS: BP_SYST 139
[2022-04-29] MEDS ORDERED: ONDANSETRON HCL 4 MG/2 ML VIAL IVP ONE (23:15)
[2022-04-29] MEDS ORDERED: MORPHINE 4 MG INJ. 4 MG/ML VIAL IVP ONE (23:15)
[2022-04-29] MEDS ORDERED: NACL 0.9% 1,000 ML IV ONE (23:15)
[2022-04-29 23:38] LABS: BASOPHILS # (AUTO) 0.1 K/uL (0.0-0.2); BASOPHILS % (AUTO) 0.9 % (0.0-2.0); EOSINOPHILS # (AUTO) 0.5 K/uL (0.0-0.4); EOSINOPHILS % (AUTO) 4.7 % (0.0-4.0); HEMATOCRIT 33.5 % (36-48); HEMOGLOBIN 11.4 g/dL (12.0-16.0); LYMPHOCYTES # (AUTO) 2.8 K/uL (1.0-5.5); LYMPHOCYTES % (AUTO) 29.2 % (20.5-51.5); MEAN CORPUSCULAR HEMOGLOBIN 30 pg (27-31); MEAN CORPUSCULAR HGB CONC 34 % (32-36); MEAN CORPUSCULAR VOLUME 89 fL (79.0-98.0); MONOCYTES # (AUTO) 0.9 K/uL (0.0-1.0); MONOCYTES % (AUTO) 8.8 % (1.7-9.3); NEUTROPHILS # (AUTO) 5.4 K/uL (1.8-7.7); NEUTROPHILS % (AUTO) 56.4 % (40.0-70.0); PLATELET COUNT (AUTO) 392 K/uL (130-430); RED BLOOD CELL COUNT(AUTO) 3.75 MIL/uL (4.2-6.2); RED CELL DISTRIBUTION WIDTH 14.8 % (9.0-15.0); WHITE BLOOD COUNT (AUTO) 9.6 K/uL (4.8-10.8)
[2022-04-29 23:58] LABS: CALCIUM 9.9 mg/dL (8.4-11.0); CREATININE 0.65 mg/dL (0.55-1.30); POTASSIUM 3.2 mmol/L (3.5-5.1)
[2022-04-30 00:04] LABS: ALBUMIN 3.7 g/dL (3.4-4.8); TOTAL BILIRUBIN 0.2 mg/dL (0.0-1.0)
[2022-04-30] MEDS ORDERED: KCL 20 mEq in 100 mL (PREMIX) 100 ML IV ONE (00:30)
[2022-04-30] MEDS ORDERED: HYDROmorphone 1 MG/ML INJ. CARTRIDGE IVP ONE ×2 (01:00→03:45)
[2022-04-30] MEDS ORDERED: DIPHENHYDRAMINE INJ 50 MG/ML VIAL IVP ONE (01:45)
[2022-04-30] MEDS ORDERED: METOCLOPRAMIDE HCL 10 MG/2 ML VIAL IVP ONE (01:45)
[2022-04-30] MEDS ORDERED: POTASSIUM CHLORIDE 20 MEQ TAB.PRT.SR PO ONE (03:15)
[2022-04-30 03:43] LABS: BILIRUBIN,URINE 1+ (NEGATIVE); BLOOD, URINE NEGATIVE (NEGATIVE); CLARITY/URINE CLEAR (CLEAR); COLOR,URINE YELLOW (YELLOW); GLUCOSE,URINE NEGATIVE (NEGATIVE); KETONES,URINE 3+ (NEGATIVE); LEUKOCYTE ESTERASE ,URINE NEGATIVE (NEGATIVE); NITRITE, URINE NEGATIVE (NEGATIVE); PROTEIN URINE TRACE (NEGATIVE); UROBILINOGEN,URINE 0.2 (0.2-1.0)
[2022-04-30 04:34] VITALS: BP_SYST 136
== END 2022-04-30 04:16 | disposition short-term general hospital (02) ==
LOC: SED 23:06
DX: K85.90 Acute pancreatitis without necrosis or infection, unspecified (principal); R10.13 Epigastric pain; R11.2 Nausea with vomiting, unspecified; E87.6 Hypokalemia; Z79.899 Other long term (current) drug therapy; Z20.822 Contact with and (suspected) exposure to COVID-19
CPT/HCPCS: 99285; 87426; 80053; 84703; 83690; 85025; 36415; 81003; 96375; 96365; 96366; 96376; G0482; J1200; J2765; J2405; J3480; J1170; J2270

== ENCOUNTER 2022-05-09 06:27 | Emergency (ER) | payer OTHER ==
[~2022-05-09] VITALS: Ht 167.6 cm; Wt 52.6 kg
[2022-05-09 06:30] VITALS: BP_SYST 126
--- NOTE | 2022-05-09 07:24 | NUR ---
Patient noted to be throwing up in emesis bag. GUSTAVO Arnold went to see patient.
--- NOTE | 2022-05-09 07:27 | NUR ---
Patient arrived to ED room 8 for c/o abdominal in "upper mid-sternum" up and down near the belly button. Patient was having sharp pain since Monday. Patient was discharged from [facility] this past Monday on 05/04/22. Patient has history of pancreatitis and . Will continue to monitor.
[2022-05-09] MEDS ORDERED: ONDANSETRON HCL 4 MG/2 ML VIAL IVP ONE ×2 (07:45)
[2022-05-09] MEDS ORDERED: MORPHINE SULFATE 10 MG/ML VIAL IVP ONE (07:45)
[2022-05-09] MEDS ORDERED: NACL 0.9% 1,000 ML IV ONE ×2 (07:45→09:45)
[2022-05-09 07:49] LABS: BASOPHILS # (AUTO) 0.1 K/uL (0.0-0.2); BASOPHILS % (AUTO) 0.6 % (0.0-2.0); EOSINOPHILS # (AUTO) 0.3 K/uL (0.0-0.4); EOSINOPHILS % (AUTO) 1.9 % (0.0-4.0); HEMATOCRIT 36.5 % (36-48); HEMOGLOBIN 12.3 g/dL (12.0-16.0); LYMPHOCYTES # (AUTO) 2.5 K/uL (1.0-5.5); LYMPHOCYTES % (AUTO) 18.4 % (20.5-51.5); MEAN CORPUSCULAR HEMOGLOBIN 30 pg (27-31); MEAN CORPUSCULAR HGB CONC 34 % (32-36); MEAN CORPUSCULAR VOLUME 89 fL (79.0-98.0); MONOCYTES % (AUTO) 7.1 % (1.7-9.3); NEUTROPHILS # (AUTO) 9.6 K/uL (1.8-7.7); PLATELET COUNT (AUTO) 488 K/uL (130-430); RED BLOOD CELL COUNT(AUTO) 4.08 MIL/uL (4.2-6.2); RED CELL DISTRIBUTION WIDTH 15.5 % (9.0-15.0); WHITE BLOOD COUNT (AUTO) 13.4 K/uL (4.8-10.8)
[2022-05-09 08:25] LABS: ANION GAP 14 (5-15); CALCIUM 10.6 mg/dL (8.4-11.0); CHLORIDE 96 mmol/L (98-107); CREATININE 0.86 mg/dL (0.55-1.30); GLUCOSE 109 mg/dL (70-99); UREA NITROGEN, BLOOD 14 mg/dL (8-21)
[2022-05-09 08:34] LABS: GFR AFRICAN AMERICAN 90 mL/min (>90)
[2022-05-09 08:35] LABS: ALANINE AMINOTRANSFERASE 117 U/L (12-78); ALBUMIN 3.5 g/dL (3.4-4.8); ASPARTATE AMINOTRANSFERASE 112 U/L (10-37); LIPASE 1946 U/L (73-393); TOTAL BILIRUBIN 0.5 mg/dL (0.0-1.0)
[2022-05-09 08:42] LABS: ALCOHOL, BLOOD < 3 mg/dL (<10)
[2022-05-09] MEDS ORDERED: PROCHLORPERAZINE EDISYLATE 10 MG/2 ML VIAL IVP ONE (09:45)
[2022-05-09] MEDS ORDERED: DIPHENHYDRAMINE INJ 50 MG/ML VIAL IVP ONE (09:45)
[2022-05-09] MEDS ORDERED: HYDROmorphone 1 MG/ML INJ. CARTRIDGE IVP ONE ×3 (09:45→13:15)
[2022-05-09 09:48] LABS: BILIRUBIN,URINE 1+ (NEGATIVE); BLOOD, URINE NEGATIVE (NEGATIVE); CLARITY/URINE CLEAR (CLEAR); COLOR,URINE YELLOW (YELLOW); GLUCOSE,URINE NEGATIVE (NEGATIVE); KETONES,URINE 2+ (NEGATIVE); LEUKOCYTE ESTERASE ,URINE NEGATIVE (NEGATIVE); NITRITE, URINE NEGATIVE (NEGATIVE); PROTEIN URINE TRACE (NEGATIVE); UROBILINOGEN,URINE 0.2 (0.2-1.0)
--- NOTE | 2022-05-09 12:38 | NUR ---
PT WILL BE TRANSFERRED TO [facility]. ACCEPTING PHYSICIAN IS DR. JAMES. S TRANSPORT WILL TWISTHAND AT 1330. NUMBER FOR REPORT IS .
--- NOTE | 2022-05-09 14:07 | NUR ---
Report given to Shawn Lopez RN for continuity of care. Ambulance here to pick patient up.
--- NOTE | 2022-05-09 14:07 | NUR ---
Patient resting in bed.
--- NOTE | 2022-05-09 14:17 | NUR ---
Report given to TEMITOPE Ayala for continuity of care. Patient in stable condition. No distress noted. Ambulance here to take patient to [facility].
[2022-05-09 15:04] VITALS: BP_SYST 135
== END 2022-05-09 15:04 | disposition home or self-care (01) ==
LOC: SED 06:27
DX: K85.90 Acute pancreatitis without necrosis or infection, unspecified (principal); R10.13 Epigastric pain; R11.2 Nausea with vomiting, unspecified; F17.200 Nicotine dependence, unspecified, uncomplicated; Z79.899 Other long term (current) drug therapy; Z20.822 Contact with and (suspected) exposure to COVID-19
CPT/HCPCS: 99285; 96374; 96375; 96361; 87426; 80053; 83615; 83690; 85025; 36415; 96376; 81003; G0482; J1200; J2405; J0780; J1170; J2270; J7030

== ENCOUNTER 2022-06-19 10:47 | Emergency (ER) | payer OTHER ==
[~2022-06-19] VITALS: Ht 167.6 cm; Wt 52.2 kg
[2022-06-19 11:06] VITALS: BP_SYST 140
[2022-06-19] MEDS ORDERED: KETOROLAC TROMETHAMINE 30 MG VIAL IM ONE (11:15)
[2022-06-19] MEDS ORDERED: MORPHINE 4 MG INJ. 4 MG/ML VIAL IM ONE (12:15)
[2022-06-19 12:29] LABS: BILIRUBIN,URINE 1+ (NEGATIVE); BLOOD, URINE NEGATIVE (NEGATIVE); COLOR,URINE YELLOW (YELLOW); GLUCOSE,URINE NEGATIVE (NEGATIVE); KETONES,URINE 1+ (NEGATIVE); LEUKOCYTE ESTERASE ,URINE 1+ (NEGATIVE); NITRITE, URINE NEGATIVE (NEGATIVE); PROTEIN URINE NEGATIVE (NEGATIVE); UROBILINOGEN,URINE 0.2 (0.2-1.0)
[2022-06-19 12:32] LABS: CREATININE 0.76 mg/dL (0.55-1.30); POTASSIUM 3.7 mmol/L (3.5-5.1)
[2022-06-19 12:33] LABS: BASOPHILS % (AUTO) 0.4 % (0.0-2.0); EOSINOPHILS # (AUTO) 0.3 K/uL (0.0-0.4); EOSINOPHILS % (AUTO) 2.5 % (0.0-4.0); HEMATOCRIT 35.6 % (36-48); HEMOGLOBIN 12.1 g/dL (12.0-16.0); LYMPHOCYTES % (AUTO) 24.5 % (20.5-51.5); MEAN CORPUSCULAR HEMOGLOBIN 32 pg (27-31); MEAN CORPUSCULAR HGB CONC 34 % (32-36); MEAN CORPUSCULAR VOLUME 95 fL (79.0-98.0); MONOCYTES # (AUTO) 0.7 K/uL (0.0-1.0); NEUTROPHILS # (AUTO) 8.1 K/uL (1.8-7.7); NEUTROPHILS % (AUTO) 66.6 % (40.0-70.0); PLATELET COUNT (AUTO) 403 K/uL (130-430); RED BLOOD CELL COUNT(AUTO) 3.76 MIL/uL (4.2-6.2); RED CELL DISTRIBUTION WIDTH 15.4 % (9.0-15.0); WHITE BLOOD COUNT (AUTO) 12.2 K/uL (4.8-10.8)
[2022-06-19 12:37] LABS: TOTAL BILIRUBIN 0.5 mg/dL (0.0-1.0)
[2022-06-19 12:50] LABS: CLARITY/URINE SLIGHTLY HAZY (CLEAR)
[2022-06-19 13:00] LABS: BACTERIA,URINE FEW /HPF (None Seen); MUCUS,URINE 1+ /LPF (None Seen); RBC,URINE 0-3 /HPF (0-3)
[2022-06-19] MEDS ORDERED: NACL 0.9% 2,000 ML IV ONE (13:30)
[2022-06-19 15:05] VITALS: BP_SYST 132
== END 2022-06-19 15:05 | disposition home or self-care (01) ==
LOC: SED 10:47
DX: K85.90 Acute pancreatitis without necrosis or infection, unspecified (principal); R11.2 Nausea with vomiting, unspecified; R10.13 Epigastric pain; Z79.899 Other long term (current) drug therapy
CPT/HCPCS: 99284; 96360; 80053; 81000; 83690; 85025; 87086; 36415; 81025; 96372; J1885; J2270; J7030

== ENCOUNTER 2022-07-03 21:14 | Emergency (ER) | payer OTHER ==
[~2022-07-03] VITALS: Ht 165.1 cm; Wt 53.1 kg
[2022-07-03 21:19] VITALS: BP_SYST 164
--- NOTE | 2022-07-03 21:21 | NUR ---
Placed in room 07 . Placed on manager regional, blood pressure machine and pulse oximeter. To gown for exam. Side rails up. Report given to TEMITOPE ISSA
[2022-07-03] MEDS ORDERED: NACL 0.9% 1,000 ML IV ONE (21:30)
[2022-07-03] MEDS ORDERED: ONDANSETRON HCL 4 MG/2 ML VIAL IVP ONE (21:30)
[2022-07-03] MEDS ORDERED: MORPHINE 4 MG INJ. 4 MG/ML VIAL IVP ONE (21:30)
[2022-07-03 21:45] LABS: BASOPHILS # (AUTO) 0.1 K/uL (0.0-0.2); BASOPHILS % (AUTO) 1.3 % (0.0-2.0); EOSINOPHILS # (AUTO) 0.3 K/uL (0.0-0.4); EOSINOPHILS % (AUTO) 2.7 % (0.0-4.0); HEMATOCRIT 33.9 % (36-48); HEMOGLOBIN 11.6 g/dL (12.0-16.0); LYMPHOCYTES % (AUTO) 26.7 % (20.5-51.5); MEAN CORPUSCULAR HEMOGLOBIN 32 pg (27-31); MEAN CORPUSCULAR HGB CONC 34 % (32-36); MEAN CORPUSCULAR VOLUME 94 fL (79.0-98.0); MONOCYTES # (AUTO) 0.4 K/uL (0.0-1.0); MONOCYTES % (AUTO) 3.6 % (1.7-9.3); NEUTROPHILS # (AUTO) 7.4 K/uL (1.8-7.7); NEUTROPHILS % (AUTO) 65.7 % (40.0-70.0); PLATELET COUNT (AUTO) 316 K/uL (130-430); RED BLOOD CELL COUNT(AUTO) 3.62 MIL/uL (4.2-6.2); RED CELL DISTRIBUTION WIDTH 14.3 % (9.0-15.0); WHITE BLOOD COUNT (AUTO) 11.3 K/uL (4.8-10.8)
[2022-07-03 21:56] LABS: CALCIUM 9.8 mg/dL (8.4-11.0); CREATININE 0.59 mg/dL (0.55-1.30); POTASSIUM 3.7 mmol/L (3.5-5.1)
[2022-07-03 22:03] LABS: ALBUMIN 4.2 g/dL (3.4-4.8); TOTAL BILIRUBIN 0.1 mg/dL (0.0-1.0)
[2022-07-03] MEDS ORDERED: PROCHLORPERAZINE EDISYLATE 10 MG/2 ML VIAL IVP ONE (22:15)
[2022-07-03] MEDS ORDERED: MORPHINE SULFATE 10 MG/ML VIAL IVP ONE (22:15)
--- NOTE | 2022-07-03 23:34 | NUR ---
COVID SAMPLE COLLECTED AND SENT TO LAB
[2022-07-04] MEDS ORDERED: LORazepam 2 MG/ML VIAL IVP ONE (00:15)
[2022-07-04] MEDS ORDERED: NACL 0.9% 1,000 ML IV ONE (00:15)
[2022-07-04] MEDS ORDERED: MORPHINE SULFATE 10 MG/ML VIAL IVP ONE (00:15)
[2022-07-04 01:37] LABS: BILIRUBIN,URINE NEGATIVE (NEGATIVE); BLOOD, URINE NEGATIVE (NEGATIVE); CLARITY/URINE CLEAR (CLEAR); COLOR,URINE YELLOW (YELLOW); GLUCOSE,URINE NEGATIVE (NEGATIVE); KETONES,URINE NEGATIVE (NEGATIVE); LEUKOCYTE ESTERASE ,URINE NEGATIVE (NEGATIVE); NITRITE, URINE POSITIVE (NEGATIVE); PROTEIN URINE NEGATIVE (NEGATIVE); UROBILINOGEN,URINE 0.2 (0.2-1.0)
[2022-07-04 02:51] LABS: BACTERIA,URINE FEW /HPF (None Seen); RBC,URINE 0-3 /HPF (0-3)
[2022-07-04 02:52] LABS: MUCUS,URINE None Seen /LPF (None Seen)
--- NOTE | 2022-07-04 03:01 | NUR ---
[facility] CALLED WITH TRANSFER INFORMATION ACCEPTING FACILITY: [facility] ED ACCEPTING PHYSICIAN Ron ZAMAN CALL REPORT TO [phone] BLS TRANSPORT AT 0400
--- NOTE | 2022-07-04 03:22 | NUR ---
Report given to TEMITOPE Khan from [facility].
[2022-07-04 03:59] VITALS: BP_SYST 127
== END 2022-07-04 03:59 | disposition short-term general hospital (02) ==
LOC: SED 21:14
DX: K85.90 Acute pancreatitis without necrosis or infection, unspecified (principal); F10.20 Alcohol dependence, uncomplicated; R10.31 Right lower quadrant pain; R11.2 Nausea with vomiting, unspecified; F17.200 Nicotine dependence, unspecified, uncomplicated; Z79.899 Other long term (current) drug therapy; Z20.822 Contact with and (suspected) exposure to COVID-19; Y90.6 Blood alcohol level of 120-199 mg/100 ml
CPT/HCPCS: 99285; 96374; 96361 ×2; 96375 ×2; 87426; 80053; 83615; 83690; 85025; 36415; 96376 ×2; 81000; G0482; J2405; J0780; J2270 ×3; J7030 ×2; J2060

== ENCOUNTER 2022-08-13 13:19 | Emergency (ER) | payer OTHER ==
[~2022-08-13] VITALS: Ht 157.5 cm; Wt 54.4 kg
[2022-08-13 13:26] VITALS: BP_SYST 124
[2022-08-13 15:06] LABS: BASOPHILS # (AUTO) 0.1 K/uL (0.0-0.2); BASOPHILS % (AUTO) 0.8 % (0.0-2.0); EOSINOPHILS # (AUTO) 0.1 K/uL (0.0-0.4); EOSINOPHILS % (AUTO) 0.9 % (0.0-4.0); HEMATOCRIT 36.1 % (36-48); LYMPHOCYTES # (AUTO) 2.5 K/uL (1.0-5.5); LYMPHOCYTES % (AUTO) 20.4 % (20.5-51.5); MEAN CORPUSCULAR HEMOGLOBIN 32 pg (27-31); MEAN CORPUSCULAR HGB CONC 33 % (32-36); MEAN CORPUSCULAR VOLUME 96 fL (79.0-98.0); MONOCYTES # (AUTO) 0.7 K/uL (0.0-1.0); MONOCYTES % (AUTO) 5.4 % (1.7-9.3); NEUTROPHILS % (AUTO) 72.5 % (40.0-70.0); PLATELET COUNT (AUTO) 501 K/uL (130-430); RED BLOOD CELL COUNT(AUTO) 3.75 MIL/uL (4.2-6.2); RED CELL DISTRIBUTION WIDTH 15.5 % (9.0-15.0); WHITE BLOOD COUNT (AUTO) 12.4 K/uL (4.8-10.8)
[2022-08-13 15:40] LABS: ANION GAP 8 (5-15); CALCIUM 10.4 mg/dL (8.4-11.0); CHLORIDE 101 mmol/L (98-107); CREATININE 0.62 mg/dL (0.55-1.30); GLUCOSE 108 mg/dL (70-99); UREA NITROGEN, BLOOD 10 mg/dL (8-21)
[2022-08-13 15:47] LABS: ALANINE AMINOTRANSFERASE 89 U/L (12-78); ALBUMIN 3.7 g/dL (3.4-4.8); ASPARTATE AMINOTRANSFERASE 38 U/L (10-37); C-REACTIVE PROTEIN QUANT 0.6 mg/dL (0-0.5); TOTAL BILIRUBIN 0.3 mg/dL (0.0-1.0)
--- NOTE | 2022-08-13 16:00 | NUR ---
RECEIVED PT FROM BETH LINN. PT BIBS FOR C/O FLU LIKE S/S X8 DAYS WITH N/V. ALSO STATED AB PAIN 04/13. DR. RUIZ ASSESSED PT IN WAITING ROOM. PT IS AAOX4. ON R/A. SKIN INTACT, NO EDEMA, PERIPHERAL PULSES STRONG. NORMAL S1S2 NOTED. SIDERAILS UP X2.
[2022-08-13 16:01] LABS: GFR AFRICAN AMERICAN 132 mL/min (>90)
[2022-08-13 16:03] LABS: AMYLASE 1162 U/L (0-100)
[2022-08-13 16:04] LABS: LIPASE 6436 U/L (73-393)
[2022-08-13] MEDS ORDERED: ONDANSETRON HCL 4 MG/2 ML VIAL IVP ONE ×2 (16:15→16:30)
[2022-08-13] MEDS ORDERED: MORPHINE 4 MG INJ. 4 MG/ML VIAL IVP ONE ×2 (16:15→16:30)
[2022-08-13 16:17] LABS: ACETONE, SERUM NEGATIVE (NEGATIVE)
[2022-08-13] MEDS ORDERED: NACL 0.9% 1,000 ML IV ONE (16:30)
--- NOTE | 2022-08-13 16:53 | NUR ---
NS BOLUS 1000ML INITIATED. MOPPHINE 4MG IVP GIVEN FOR AB PAIN 05/14. ZOFRAN IVP GIVEN FOR N/V.
--- NOTE | 2022-08-13 17:20 | NUR ---
CT SCAN COMPLETED.
[2022-08-13] MEDS ORDERED: LORazepam 2 MG/ML VIAL IVP ONE (17:45)
--- NOTE | 2022-08-13 18:04 | NUR ---
ATIVAN 1MG IVP FOR ANXIETY.
--- NOTE | 2022-08-13 19:35 | NUR ---
ENDORSED PT TO TEMITOPE MEAD. ALL QUESTIONS AND CONCERNS ADDRESSED.
--- NOTE | 2022-08-13 21:09 | NUR ---
Patient to be transferred to [facility]. Is being transferred due to higher level of care. Receiving facility has accepting physician and available space. ER physician has signed transfer form. Patient or responsible green party has agreed to transfer and signed form. Patient belongings inventoried and will be sent with patient. Copy of nursing notes, lab reports, EKG, Physicians Orders and X-rays to be sent with patient. Report called to TEMITOPE Joya at receiving facility. Receiving physician is MD Kramer. [facility] ambulance service has been called for transfer. ETA is [phone].
--- NOTE | 2022-08-13 21:48 | NUR ---
Harry arrived for coal picker/transfer for [facility] ER. Report/care endorsed to [facility] ambulance EMT's. Pt left ED in stable condition. All belongings sent with pt.
[2022-08-13 21:52] VITALS: BP_SYST 159
== END 2022-08-13 21:52 | disposition short-term general hospital (02) ==
LOC: SED 13:19
DX: K85.90 Acute pancreatitis without necrosis or infection, unspecified (principal); R05.9 Cough, unspecified; R09.81 Nasal congestion; R50.9 Fever, unspecified; Z79.899 Other long term (current) drug therapy; Z20.822 Contact with and (suspected) exposure to COVID-19
CPT/HCPCS: 99285; 74176; 96374; 71045; 96375; 96361; 87426; 80053; 82009; 82150; 83615; 83690; 85025; 86140; 36415; 76376; 87804 ×2; J2060; J2405; J2270; J7030

== ENCOUNTER 2022-12-08 22:46 | Inpatient (IN) | payer OTHER ==
[~2022-12-08] VITALS: Ht 162.6 cm; Wt 59.9 kg
[2022-12-08 22:58] VITALS: BP_SYST 150
--- NOTE | 2022-12-08 23:00 | NUR ---
ER examining patient in the [facility].
--- NOTE | 2022-12-08 23:09 | NUR ---
Placed in room 8 . Placed on monitor car operator, blood pressure machine and pulse oximeter. To gown for exam. Side rails up. Report given to LUIS MANUEL LINN(REG).
--- NOTE | 2022-12-08 23:09 | NUR ---
Seizure precautions in place. Seizure pads applied to gurney. Side rails up.
[2022-12-08] MEDS ORDERED: levETIRAcetam 1,000 MG in NS 90 ML IV ONE (23:15)
[2022-12-08] MEDS ORDERED: LORazepam 2 MG/ML VIAL IVP ONE (23:15)
[2022-12-08 23:51] LABS: BASOPHILS % (AUTO) 0.1 % (0.0-2.0); HEMATOCRIT 37.8 % (36-48); HEMOGLOBIN 12.8 g/dL (12.0-16.0); LYMPHOCYTES # (AUTO) 1.8 K/uL (1.0-5.5); LYMPHOCYTES % (AUTO) 12.6 % (20.5-51.5); MEAN CORPUSCULAR HEMOGLOBIN 34 pg (27-31); MEAN CORPUSCULAR HGB CONC 34 % (32-36); MEAN CORPUSCULAR VOLUME 100 fL (79.0-98.0); NEUTROPHILS # (AUTO) 11.5 K/uL (1.8-7.7); NEUTROPHILS % (AUTO) 80.3 % (40.0-70.0); PLATELET COUNT (AUTO) 111 K/uL (130-430); RED CELL DISTRIBUTION WIDTH 13.5 % (9.0-15.0); WHITE BLOOD COUNT (AUTO) 14.3 K/uL (4.8-10.8)
[2022-12-09] VITALS (24 sets, daily range): BP systolic 75–136
[2022-12-09 00:25] LABS: CALCIUM 9.5 mg/dL (8.4-11.0); CREATININE 0.85 mg/dL (0.55-1.30); GFR AFRICAN AMERICAN 91 mL/min (>90); GLUCOSE 121 mg/dL (70-99); UREA NITROGEN, BLOOD 8 mg/dL (8-21)
[2022-12-09 00:26] LABS: PROTHROMBIN TIME 10.1 SECS (9.5-12.5)
[2022-12-09 00:33] LABS: ALANINE AMINOTRANSFERASE 222 U/L (12-78); ALBUMIN 3.9 g/dL (3.4-4.8); ASPARTATE AMINOTRANSFERASE 234 U/L (10-37); LIPASE 174 U/L (73-393); TOTAL BILIRUBIN 1.1 mg/dL (0.0-1.0)
[2022-12-09] MEDS ORDERED: LORazepam 2 MG/ML VIAL IVP ONE ×2 (00:45→01:15)
[2022-12-09 00:49] LABS: ANION GAP 9 (5-15)
[2022-12-09 00:50] LABS: CHLORIDE 75 mmol/L (98-107)
[2022-12-09] MEDS ORDERED: MVI 10 ML VIAL IV ONE (00:53)
[2022-12-09] MEDS ORDERED: THIAMINE HCL 100 MG/ML VIAL ONE (00:53)
[2022-12-09] MEDS ORDERED: FOLIC ACID 5 MG/ML VIAL IV ONE (00:53)
[2022-12-09] MEDS ORDERED: MAGNESIUM SULFATE 1 GM/2 ML VIAL ONE (00:53)
[2022-12-09] MEDS ORDERED: SODIUM CHLORIDE 3% *HI-ALERT* 150 ML IV ONE (01:00)
[2022-12-09] MEDS ORDERED: FOLIC ACID 1 MG, THIAMINE HCL 100 MG, MAGNESIUM SULFATE 1 GM, MVI 10 ML in NACL 0.9% 1,... IV ONE (01:00)
[2022-12-09] MEDS ORDERED: SODIUM CHLORIDE 3% *HI-ALERT* 500 ML IV ONE (01:08)
[2022-12-09] MEDS ORDERED: HALOPERIDOL LACTATE 5 MG/ML VIAL IVP ONE (01:45)
[2022-12-09] MEDS ORDERED: LORazepam 2 MG/ML VIAL IVP PRN (02:15)
[2022-12-09] MEDS ORDERED: D5NS 1,000 ML IV SCH (02:15)
--- NOTE | 2022-12-09 02:47 | NUR ---
ADMITTED FROM ER VIA [facility] WITH TREMORS ON UPPER AND LOWER EXTREMETIES, ALTERED LOC UNABLE TO FOLLOW COMMANDS AND GARBLED SPEECH,HAD 3X DOSES OF ATIVAN AND HALDOL IN ER PER RN LUIS MANUEL, CHG BATH DONE AND REPOSITION TO COMFORT,CONNECTED TO BEDSIDE MONITOR. SKIN INTACT WITH BRUISE AT THE RT SIDE OF THE BACK, PER FAMILY HAD FALL MULTIPLE TIMES AT HOME PRIOR TO ER NO SKIN TEAR. FAMILY AT BEDSIDE UPDATED CT REPORT AWARE.
[2022-12-09 02:56] LABS: ALCOHOL, BLOOD 4 mg/dL (<10); LIPASE 131 U/L (73-393)
[2022-12-09 03:26] LABS: ACETAMINOPHEN < 1 ug/mL (1-30)
--- NOTE | 2022-12-09 03:53 | NUR ---
CONSULTATION PAGED/CALLED Reason for Consultation: hyponatremia Person Who was Notified: Allyson Consulting Physician: Antione Nuclear Powerplant Mechanic Specialty: Ordering Physician:
--- NOTE | 2022-12-09 03:54 | NUR ---
CONSULTATION PAGED/CALLED Reason for Consultation: hyponatremia/critical care Person Who was Notified: exchange Consulting Physician: teodoro Residential Monitor Specialty: Ordering Physician:
--- NOTE | 2022-12-09 04:00 | NUR ---
CALLED DR BALDWIN CLARIFY ORDER OF D5NS AND ADVISED NO MORE 3% NA HYPERTONIC TYLER IF ANYTHING CALL CRITICAL CARE CONSULT.
[2022-12-09 04:10] LABS: ACETONE, SERUM NEGATIVE (NEGATIVE)
--- NOTE | 2022-12-09 04:32 | NUR ---
DR. JOHNSON SPOKE WITH MD REGARDING NEW ADMISSION, UPDATED MD ON PT CONDITION AND NA 116 FROM ER. MD MADE AWARE THAT 3% NACL BOLUS OF 150CC WAS THE ONLY THING GIVEN FOR HYPONATREMIA PRIOR TO COMING TO THE ICU. PER MD STOP IVF. OBTAIN NA LEVEL STAT. IF NA <120 START 3% NACL @ 15 CC/HR, IF NA >120 HOLD FLUIDS AND KEEP PT NPO. TREND NA LEVELS Q4H. WILL CARRY OUT ORDERED.
[2022-12-09 05:19] LABS: HEMATOCRIT 36.8 % (36-48); HEMOGLOBIN 12.2 g/dL (12.0-16.0); LYMPHOCYTES # (AUTO) 1.7 K/uL (1.0-5.5); LYMPHOCYTES % (AUTO) 13.2 % (20.5-51.5); MEAN CORPUSCULAR HEMOGLOBIN 34 pg (27-31); MEAN CORPUSCULAR HGB CONC 33 % (32-36); MEAN CORPUSCULAR VOLUME 102 fL (79.0-98.0); MONOCYTES # (AUTO) 1.2 K/uL (0.0-1.0); MONOCYTES % (AUTO) 9.6 % (1.7-9.3); NEUTROPHILS # (AUTO) 9.7 K/uL (1.8-7.7); NEUTROPHILS % (AUTO) 77.2 % (40.0-70.0); RED CELL DISTRIBUTION WIDTH 14.1 % (9.0-15.0); WHITE BLOOD COUNT (AUTO) 12.6 K/uL (4.8-10.8)
[2022-12-09 05:22] LABS: PLATELET COUNT (AUTO) 106 K/uL (130-430)
[2022-12-09 05:29] LABS: CALCIUM 8.4 mg/dL (8.4-11.0); CREATININE 0.59 mg/dL (0.55-1.30)
[2022-12-09 05:34] LABS: ALBUMIN 3.2 g/dL (3.4-4.8); TOTAL BILIRUBIN 0.9 mg/dL (0.0-1.0)
--- NOTE | 2022-12-09 05:42 | NUR ---
LAB CALLED Na-123 AND CL-85 NO INTERVENTION NEEDED AT THIS TIME PER DR ELIZABETH JACOBSON TO MONITOR.
--- NOTE | 2022-12-09 06:59 | NUR ---
0600 SHE PULLED HER IV LINE AT LT FOREARM, 0640 HAD LARGE VOID PER PAD CLEANED AND KEPTDRY 0640 INSERTED NEW LINE AT RT FOREARM G20 GOOD BLOOD RETURN. 0655 VERY RESTLESS AND TRYING TO FIGHT AND GET OUT OF BED CLAIMED SHE WANNA GO TO BATHROOM ATIVAN IVP GIVEN 2 MG.
--- NOTE | 2022-12-09 08:58 | NUR ---
CONSULTATION PAGED/CALLED Reason for Consultation: HYPONATREMIA Person Who was Notified: MICHELINE Consulting Physician: FRANK Plater Hot Dip Specialty: NEPHROLOGY Ordering Physician: DON
[2022-12-09 16:36] LABS: CALCIUM 8.8 mg/dL (8.4-11.0); CREATININE 0.62 mg/dL (0.55-1.30)
--- NOTE | 2022-12-09 16:36 | NUR ---
Accounting Technician DEAN OF WOMEN met with pt. who has an alcohol issue. ETOH was 4, tremors opiod abuse. DEAN OF WOMEN introduced self to pt. who was awake but wanted her eyes closed. Also present in the room is her boyfriend Ton, sister Carlene ([place]) and brother Ayo ([place]) Pt. was doze off. DEAN OF WOMEN asked pt. if she knew why she was in the hospital, pt. stated for pancreatitis and for drinking. Pt.stated she has not ever been to any program for drinking , works at [employer]. Pt. lives with a roommate but pt and roommate don't cross paths. Pt. stated she only drinks beer. Boyfriend stated she stated drinking Festus back in [place] a couple of years ago. Pt. stated she has never seen a therapist or participated in any substance abuse or alcohol program and is not interested. Pt. allows DEAN OF WOMEN to leave her with resources and her card. DEAN OF WOMEN educated pt on the importance of therapy and to find out what triggers her and why she is using alcohol to self medicate. Pt. stated she did not want to participate. DEAN OF WOMEN thanked pt. for her time and will remain available as needed.
[2022-12-09] MEDS ORDERED: POTASSIUM CHLORIDE 40 MEQ in NS 250 ML IV ONE (17:00)
[2022-12-09] MEDS ORDERED: DESMOPRESSIN ACETATE 4 MCG/ML AMP IVP ONE (18:30)
[2022-12-09 20:02] LABS: BILIRUBIN,URINE NEGATIVE (NEGATIVE); BLOOD, URINE NEGATIVE (NEGATIVE); CLARITY/URINE CLEAR (CLEAR); COLOR,URINE YELLOW (YELLOW); GLUCOSE,URINE NEGATIVE (NEGATIVE); KETONES,URINE NEGATIVE (NEGATIVE); LEUKOCYTE ESTERASE ,URINE NEGATIVE (NEGATIVE); NITRITE, URINE NEGATIVE (NEGATIVE); PH,URINE 6.5 (5.0-8.0); PROTEIN URINE NEGATIVE (NEGATIVE); UROBILINOGEN,URINE 0.2 (0.2-1.0)
[2022-12-09 20:17] LABS: BARBITURATE, URINE NEGATIVE (NEG <=200); BENZODIAZEPINE, URINE POSITIVE (NEG <=150); CANNABINOID, URINE NEGATIVE (NEG <=50); COCAINE, URINE NEGATIVE (NEG <=150); METHAMPHETAMINES SCREEN,URINE NEGATIVE (NEG <=500); OPIATE, URINE NEGATIVE (NEG <=100); PHENCYCLIDINE SCREEN,URINE NEGATIVE (NEG <=25); UR TRICYCLIC ANTIDEPRESSANTS NEGATIVE (NEG <=300); URINE AMPHETAMINE NEGATIVE (NEG <=500); URINE METHADONE NEGATIVE (NEG <=200); URINE OXYCODONE SCREEN NEGATIVE (NEG <=100); URINE PROPOXYPHENE SCREEN NEGATIVE (NEG <=300)
[2022-12-09] MEDS ORDERED: chlordiazePOXIDE HCL 25 MG CAPSULE PO SCH (21:00)
--- NOTE | 2022-12-09 22:40 | NUR ---
[facility] CALLED PATIENT HAS A BED IN [facility] PT GOING TO RM 4022 REPORT GIVEN TO OSEI LINN ACCEPTING DR JUANA GAITAN.
[2022-12-09 23:00] LABS: CALCIUM 8.6 mg/dL (8.4-11.0); CREATININE 0.83 mg/dL (0.55-1.30)
--- NOTE | 2022-12-10 00:21 | NUR ---
0015 [facility] CAME AND TOOK PATIENT TO [facility] AWAKE AND ALERT. CALLED SISTER MICHELLE NO ANSWER LEFT A MESSAGE.
[2022-12-10 13:21] LABS: URINE SODIUM, RANDOM 12 mmol/L (40-220)
== END 2022-12-10 00:12 | disposition short-term general hospital (02) | DRG 100 ==
LOC: SED 22:46 → SIC 12-09 02:13
PROVIDERS: ADMIT General Practice; ATTEND General Practice
DX: G40.409 Other generalized epilepsy and epileptic syndromes, not intractable, without status epilepticus (principal); G92.8 Other toxic encephalopathy; E87.1 Hypo-osmolality and hyponatremia; F10.239 Alcohol dependence with withdrawal, unspecified; G40.509 Epileptic seizures related to external causes, not intractable, without status epilepticus; E87.8 Other disorders of electrolyte and fluid balance, not elsewhere classified; Z20.822 Contact with and (suspected) exposure to COVID-19; S20.229A Contusion of unspecified back wall of thorax, initial encounter; X58.XXXA Exposure to other specified factors, initial encounter; Y90.9 Presence of alcohol in blood, level not specified; Z79.891 Long term (current) use of opiate analgesic; Z79.899 Other long term (current) drug therapy; Y93.89 Activity, other specified; Y92.89 Other specified places as the place of occurrence of the external cause; Y99.8 Other external cause status
CPT/HCPCS: 36415; 70450-TC; 71045; 76376; 80048; 80053; 80307; 81003; 82009; 82140; 82570; 83690; 83935; 84295; 84302; 84484; 85025; 85610-TC; 85730-TC; 87081; 93005; 96365; 96368; 96375; 96376; 99291; G0480; G0481; G0482; J1630; J1953; J2060; J2597; J3411; J3475; J3480; J3490; J7050